=== PATIENT | male | born 1955 | race Caucasian/White ===

== ENCOUNTER → 2016-11-21 | Outpatient (CLI) | payer OTHER ==
[2016-11-21 09:41] LABS: RED BLOOD COUNT 4.74 M/UL (4.20-5.50); WHITE BLOOD COUNT 4.5 K/UL (4.5-11.0)
[2016-11-21 09:57] LABS: BUN/CREATININE RATIO 20 (0-10)
== END ==
LOC: LAB 09:04
PROVIDERS: Family Medicine
DX: I10 Essential (primary) hypertension (principal); D69.6 Thrombocytopenia, unspecified
CPT/HCPCS: 36415; 80048; 85025

== ENCOUNTER → 2017-02-07 | Outpatient (CLI) | payer OTHER ==
[2017-02-07 07:23] LABS: HEMOGLOBIN 14.5 gm/dl (14.0-17.5); RED BLOOD COUNT 5.01 M/UL (4.20-5.50); WHITE BLOOD COUNT 4.3 K/UL (4.5-11.0)
[2017-02-07 07:38] LABS: BUN/CREATININE RATIO 18 (0-10)
== END ==
LOC: LAB 06:57
PROVIDERS: Family Medicine
DX: E11.9 Type 2 diabetes mellitus without complications (principal); D69.6 Thrombocytopenia, unspecified
CPT/HCPCS: 36415; 80053; 83036; 85025

== ENCOUNTER → 2017-02-13 | Outpatient (CLI) | payer OTHER | LOC: RAD 08:34 | DX: R05 Cough (principal) | CPT/HCPCS: 71020 ==

== ENCOUNTER 2022-03-12 12:53 | Emergency (ER) | payer MEDICARE ==
[2022-03-12 13:46] LABS: HEMOGLOBIN 15.2 gm/dl (14.0-17.5); RED BLOOD COUNT 5.24 M/UL (4.20-5.50); WHITE BLOOD COUNT 6.4 K/UL (4.5-11.0)
[2022-03-12 14:18] LABS: BUN/CREATININE RATIO 20 (0-10)
== END 2022-03-12 22:20 | disposition other institution (70) ==
LOC: ER1 12:53
PROVIDERS: Emergency Medicine
DX: G45.9 Transient cerebral ischemic attack, unspecified (principal); I10 Essential (primary) hypertension; E11.9 Type 2 diabetes mellitus without complications
CPT/HCPCS: 70496; 71045; 80053; 83880; 84484; 85025; 85610; 93005; 99285; Q9967